=== PATIENT | female | born 1990 | race Caucasian/White ===

== ENCOUNTER 2024-02-21 09:34 | Emergency (ER) | payer OTHER ==
[2024-02-21] MEDS ORDERED: IBUPROFEN 200 MG TAB PO ONE (09:52)
[2024-02-21 10:03] LABS: Specific Gravity 1.012 (1.005-1.030)
[2024-02-21 10:05] LABS: Specific Gravity 1.012 (1.005-1.030); Sqamous Epithelial <5 /HPF (None Seen); Urine Bacteria <20 /HPF (<20); Urine Bilirubin NEGATIVE (Negative); Urine Blood Negative (Negative); Urine Clarity Turbid (Clear); Urine Color Light-Yellow (Yellow); Urine Culture Reflex Order NOT NEEDED; Urine Glucose NEGATIVE (Negative); Urine Ketones NEGATIVE (Negative); Urine Microscopic Reflex YN ORDER UMIC; Urine Mucus Slight /HPF (None Seen); Urine Nitrite NEGATIVE (Negative); Urine Protein NEGATIVE (Negative); Urine RBC <5 /HPF (None Seen); Urine Urobilinogen Normal (Normal)
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
[2024-02-21] MEDS ORDERED: CIPROFLOXACIN HCL 500 MG TAB ONE (11:13)
[2024-02-21 11:38] VITALS: TEMP 98.2
[2024-02-21 11:39] VITALS: BP 140/92; O2SAT 99
== END 2024-02-21 11:33 | disposition home or self-care (01) ==
LOC: ER 09:34
DX: S16.1XXA Strain of muscle, fascia and tendon at neck level, initial encounter (principal); M54.30 Sciatica, unspecified side; N39.0 Urinary tract infection, site not specified; V49.49XA Driver injured in collision with other motor vehicles in traffic accident, initial encounter
CPT/HCPCS: 70450; 71250; 72125; 81001; 81025; 99284